=== PATIENT | female | born 1950 | race African-American/Black ===

== ENCOUNTER 2017-06-08 20:18 | Emergency (ER) | payer OTHER ==
[~2017-06-08] VITALS: Ht 160 cm; Wt 72.6 kg
[~2017-06-08 20:18] MED LIST: ACETAMINOP160 MG/12 PER TUBE; ASPIR 8181 MG PER TUBE; ASPIRIN325 PER TUBE; ATIVAN0.5 MG PER TUBE; AUGMENTIN 875875 MG PO; BICARSIM80 MG PER TUBE; BISACODYL SUPP10 MG RECTAL; CALCIUM 500 +1 EAC6 PER TUBE; CARVEDILOL25 MG PER TUBE; DIAZEPAM5 MG/1 M2 PER TUBE; DOCUSATE S100 MG/10 PER TUBE; DUONEB 2.5-0.5 M3 ML INH; ENOXAPARIN40 MG/0.1 SUBQ; FAMOTIDINE PER TUBE; FEVERALL650 MG RC; FISH OIL 1,0001 EAC7 PO; GLYCOPYRROLATE 22 M1 PER TUBE; HUMALOG100 UNIT/1 SUBQ; JANUVIA50 MG PER TUBE; KEFLEX250 M1 PO; LANSOPRAZOLE30 M1 PER TUBE; LANTUS SUBQ; LASIX 40 MG TAB40 M2 GT; LEVEMIR100 UNIT/1 SUBQ; LIPITOR 40 MG T40 M1 PER TUBE; METFORMIN HCL500 MG PER TUBE; MIRALAX17 GM PER TUBE; MULTIVITAMIN/MINERAL PER TUBE; NORCO 5-325 TA1 EACH PO; NORVASC10 MG PER TUBE; NOVOLOG100 UNIT/1 SUBQ; OYSTER SHELL 51 EACH PER TUBE; PLAVIX 75 MG TA75 M1 PER TUBE; POTASSIUM20 MEQ/15 PER TUBE; PREVACID15 MG PER TUBE; PRILOSEC 20 MG20 MG PER TUBE; REGLAN 5 MG TAB5 MG GT; REMERON15 MG SUBLING; TRANSDERM-SCO1 PATC1 TRANSDERM; VALIUM2 MG PO; VALIUM5 MG PER TUBE; VITAMIN D-32000 UNIT PER TUBE; VITAMIN D3400 UNIT/1 PER TUBE; ZESTRIL20 MG PER TUBE; ZOFRAN ODT4 MG SUBLING; ZOLOFT 50 MG TA50 M1 PO
[2017-06-08] MEDS ORDERED: HYDROCODON-ACE1 EAC7 PO (20:21)
[2017-06-08] MEDS ORDERED: BISACODYL SUPP10 MG RECTAL (20:23)
[2017-06-08] MEDS ORDERED: FISH OIL 1,001000 M2 PER TUBE (20:24)
[2017-06-08] MEDS ORDERED: GLUCAGON EMERGEN1 MG IM (20:25)
[2017-06-08] MEDS ORDERED: GLUCOSE4 GM PO (20:26)
[2017-06-08] MEDS ORDERED: DUONEB 2.5-0.5 M3 ML INH (20:27)
[2017-06-08] MEDS ORDERED: LEVEMIR SUBQ (20:28)
[2017-06-08] MEDS ORDERED: LISINOPRIL20 MG PER TUBE (20:28)
[2017-06-08] MEDS ORDERED: JANUVIA25 MG PER TUBE (20:28)
[2017-06-08] MEDS ORDERED: REGLAN10 MG PER TUBE (20:30)
[2017-06-08] MEDS ORDERED: SENNA S PER TUBE (20:33)
[2017-06-08] MEDS ORDERED: SILACE50 MG/5 ML PER TUBE (20:34)
[2017-06-08] MEDS ORDERED: MYLICON DR40 MG/0.1 PER TUBE (20:35)
== END 2017-06-08 20:44 | disposition home or self-care (01) ==
LOC: ER 20:18
DX: K94.23 Gastrostomy malfunction (principal); I10 Essential (primary) hypertension; E11.9 Type 2 diabetes mellitus without complications; M19.90 Unspecified osteoarthritis, unspecified site; F41.9 Anxiety disorder, unspecified; F32.9 Major depressive disorder, single episode, unspecified; E78.5 Hyperlipidemia, unspecified; Z86.73 Personal history of transient ischemic attack (TIA), and cerebral infarction without residual deficits; Z79.4 Long term (current) use of insulin

== ENCOUNTER 2018-01-15 17:03 | Inpatient (IN) | payer OTHER ==
[~2018-01-15] VITALS: Ht 152.4 cm; Wt 65.0 kg
--- NOTE | ~2018-01-15 | P ---
[facility] [place] [address] PROCEDURE REPORT Name: MAYRA AGUERO Room #: 461-P [facility] IN M.R.#: [id number] Admission: 01/15/18 Attend Phys: Anthony Koch MD Discharge: Date of : 50 Report #: [id number] THIS REPORT FOR: //name// CC: JOHNNA Brandt DATE OF SERVICE: 01/20/2018 PROCEDURE: Esophagogastroduodenoscopy with biopsies and percutaneous endoscopic gastrostomy tube change out. She is a patient of Dr. Tree Brandt and Dr. Anthony Koch. She is also patient of Dr. Johnna Geronimo. INDICATION FOR PROCEDURE: As above. DESCRIPTION OF PROCEDURE: Informed consent for this procedure was obtained from the patient's son prior to the administration of any sedation. The risks of the procedure which include bleeding, perforation, infection and complications of sedation were explained to the patient and to her son prior to the procedure and they have indicated their consent by signing. Propofol was slowly titrated before and during this procedure for patient comfort by the anesthesia service. As there will be no skin incisions, no antibiotics were administered prior to the procedure. The Olympus upper videoscope was introduced through the upper esophageal sphincter and advanced under direct visualization to the third portion of the duodenum. Findings are noted on withdrawal of the scope. The duodenum appears normal throughout its entirety. Pylorus, normal mucosa; antrum, normal mucosa. There is some patchy erythema just lateral to the PEG tube internal bumper, the old one. We were unable to collapse the balloon by aspirating the balloon port. Therefore, we used a biopsy forceps pin to burgess the balloon and it emptied internally into the patient's stomach. It was full of water as expected. Then, the PEG tube bumper was in-snared internally and cut off externally so that I was able to bring the old bumper up through the patient's esophagus and out through her mouth for discarding. Then, the Olympus upper videoscope was introduced through the upper esophageal sphincter again and advanced under direct visualization to the stomach. The proximal stomach was mildly erythematous. Biopsies were obtained from the stomach for histopathology to evaluate for possible etiologies of mild gastritis. The scope was withdrawn to the esophagus. Esophageal mucosa appeared normal throughout its entirety. The scope was advanced down into the stomach again. The old PEG site opening was [facility] [address] [place] [address] PROCEDURE REPORT Name: MORESHAWNAWILLIAM Room #: 461-P [facility] IN M.R.#: [id number] Admission: 01/15/18 Attend Phys: Anthony Koch MD Discharge: Date of : 50 Report #: [id number] located. A wire was advanced from the external site to the internal stomach and grasped endoscopically with a snare and brought to the patient's mouth. Then, a #20 pull PEG was tied onto the wire and pulled down through the patient's mouth and esophagus and stomach and out to the anterior gastric and anterior abdominal wall and anchored in position. Then, the Olympus upper videoscope was introduced through the upper esophageal sphincter and advanced again down into the stomach. The bumper of the PEG is seen in appropriate position on the anterior wall of the stomach. There was no bleeding evident. There was no external bleeding either. The bumper was applied externally to position the PEG correctly and biopsies were obtained x 2 for histopathology from the antrum of the stomach to evaluate the gastritis further if not mentioned above. The scope was withdrawn. The patient went to the recovery area in stable condition. She tolerated the procedure well. There was no retained food or fluid in her stomach. IMPRESSION: 1. Mild diffuse gastritis. 2. Successful change out of a #20 PEG tube for feeding purposes as above. Recommendations are for her to be able to use the PEG today for feeding purposes. There is a question of whether or not she may have gastroparesis and because she is unable to swallow anything, I am not really certain how to evaluate objectively her gastric emptying. I will discuss this with the nuclear medicine department. We may be able to put the tracer down in her PEG tube. Thank you very much once again for allowing me to participate in her care, Dr. Brandt and Dr. Koch. <ELECTRONICALLY SIGNED> By: Smitha Delacruz DO 01/21/18 0728 1246 0502 Smitha Delacruz DO /nt
--- NOTE | ~2018-01-15 | EKG ---
[address] [place] [address] ELECTROCARDIOGRAM REPORT Name: MORESHAWNAWILLIAM Room #: 461-P ADM IN M.R.#: [id number] Admission: 01/15/18 Attend Phys: En Galan Discharge: Date of : 50 Report #: [id number] THIS REPORT FOR: //name// [facility] ED Test Date: 2018-01-15 Test Time: 17:21:59 Pat Name: MAYRA AGUERO Department: Room: 461 Gender: F Law Office Manager: ISABELLA : 1950 Requested By: April Larson Order Number: [id number] MD: Moshe Subramanian Measurements Intervals [place] Rate: 114 P: 55 FL: 158 QRS: 62 QRSD: 80 T: 193 QT: 406 QTc: 560 Interpretive Statements Sinus tachycardia Probable left atrial enlargement Borderline low voltage, extremity leads Prolonged QT interval Artifact in lead(s) I,II,III,aVR,aVL,aVF,V1,V2 Compared to ECG 05/01/2014 00:30:18 Prolonged QT interval now present T-wave abnormality no longer present Electronically Signed On 01-16-2018 10:20:29 LOCOMOTIVE DRIVER by Moshe Subramanian [email or web address] <ELECTRONICALLY SIGNED> By: Moshe Subramanian MD 01/16/18 1020 1721 172 Moshe Subramanian MD /EPI
--- NOTE | ~2018-01-15 | EKG ---
[address] [address] ELECTROCARDIOGRAM REPORT Name: MAYRA AGUERO Room #: 461- ADM IN M.R.#: [id number] Admission: 01/15/18 Attend Phys: Anthony Koch MD Discharge: Date of : 50 Report #: [id number] THIS REPORT FOR: //name// [facility] Test Date: 2018-01-19 Test Time: 18:07:27 Pat Name: MAYRA AGUERO Department: Room: 461 Gender: F Mechanical Maintenance Instructor: Rey MATIAS : 1950 Requested By: Betito Weston Order Number: [id number] MD: Saleem Garcia Measurements Intervals [place] Rate: 111 P: 77 [place]: 155 QRS: 83 QRSD: 87 T: 147 QT: 309 QTc: 420 Interpretive Statements Sinus tachycardia Borderline low voltage, extremity leads Nonspecific ST and T wave abnormality Compared to ECG 01/15/2018 17:21:59 No significant change was found Electronically Signed On 01-20-2018 8:04:47 [employer]OR [employer] by Saleem Garcia [email or web address] <ELECTRONICALLY SIGNED> By: Saleem Garcia MD, [facility] 01/20/18 0804 1807 180 Saleem Garcia MD, [facility] /EPI
--- NOTE | ~2018-01-15 | PATH ---
[facility] [address] [place] [address] PATHOLOGY RPT PROCEDURE Name: MORESHAWNAWILLIAM Room #: 461-P DIS IN M.R.#: [id number] Admission: 01/15/18 Date of : 50 Discharge: 01/22/18 Report #: [id number] Path Case #: [id number] [facility] Accession Number: [id number] . 01 Material submitted: . GASTRITIS . 01 Clinical history: . Nodular, vomiting, PEG replacement Gastritis rule out H. pylori . 02 Diagnosis: Gastric mucosa, gastritis, rule out H. pylori, endoscopic biopsy: - Helicobacter pylori induced marked chronic active gastritis. - Intestinal metaplasia present. - Negative for atrophy or dysplasia. - Properly controlled immunohistochemical stain performed. . (IUV:vice president quality improvement; 01/24/2018) MBR/01/24/2018 . 02 Electronically signed: . Estela Leyva MD, Pathologist NPI- [id number] . 01 Gross description: . The specimen is received in formalin, labeled "Rylan Tolbert, gastritis rule out H. pylori" and consists of 3 fragments of soft [place] tissue measuring between 0.3 x 0.2 cm and 0.6 x 0.2 x 0.1 cm. They are entirely submitted in A1. (SDY; 01/21/2018) SYU/SYU . 02 Pathologist provided ICD-10: K29.50, B96.81 . 02 CPT . 267462, T21725 Specimen Comment: A courtesy copy of this report has been sent to Specimen Comment: [phone], , . Specimen Comment: Report sent to ,DR FU / DR GARZA Performed at: [address], [place] [id number] MD Farshad Chand MD Phone: [phone] Performed at: [address] [address] PATHOLOGY RPT PROCEDURE Name: RYLAN TOLBERT Room #: 461-P DIS IN M.R.#: [id number] Admission: 01/15/18 Date of : 50 Discharge: 01/22/18 Report #: [id number] Path Case #: [id number] [address] [place], [place] [id number] MD Estela Leyva MD Phone: [phone]
[~2018-01-15 17:03] MED LIST changes: +FISH OIL 1,001000 M2 PER TUBE; +GLUCAGON EMERGEN1 MG IM; +GLUCOSE4 GM PO; +HYDROCODON-ACE1 EAC7 PO; +JANUVIA25 MG PER TUBE; +LEVEMIR SUBQ; +LISINOPRIL20 MG PER TUBE; +MYLICON DR40 MG/0.1 PER TUBE; +REGLAN 10 MG TA10 MG PO; +REGLAN10 MG PER TUBE; +SENNA S PER TUBE; +SILACE50 MG/5 ML PER TUBE
[2018-01-15 17:32] LABS: URINE BILIRUBIN NEGATIVE (Negative); URINE BLOOD NEGATIVE (Negative); URINE CLARITY CLEAR; URINE COLOR YELLOW; URINE GLUCOSE-RANDOM* 2+ (Negative); URINE KETONES 1+ (Negative); URINE LEUKOCYTES-REFLEX NEGATIVE (Negative); URINE NITRITE-REFLEX NEGATIVE (Negative); URINE PROTEIN (DIPSTICK) NEGATIVE (Negative); URINE UROBILINOGEN 0.2 E.U./dl (0.2-1.0)
[2018-01-15 18:24] LABS: HEMATOCRIT 39.2 % (37.0-47.0); HEMOGLOBIN 13.1 gm/dL (12.0-15.0); MCH 27.4 pg (26.0-34.0); MCHC 33.3 g/dL (28.0-37.0); MCV 82.3 fL (80.0-100.0); RBC 4.77 mil/uL (4.20-5.00); RDW 16.9 % (10.5-14.5); WBC 16.3 thou/uL (4.0-11.0)
[2018-01-15 18:28] LABS: ANION GAP 10 mmol/L (7-16); BUN 30 mg/dL (7-18); CALCIUM 10.8 mg/dL (8.5-10.1); CHLORIDE 95 mmol/L (98-107); CO2 34 mmol/L (21-32); GLUCOSE 380 mg/dL (74-106); POTASSIUM 4.2 mmol/L (3.5-5.1); SODIUM 139 mmol/L (136-145)
[2018-01-15 18:37] LABS: ALBUMIN 4.1 g/dL (3.4-5.0); SGOT 13 U/L (15-37); SGPT 22 U/L (30-65); TOTAL BILIRUBIN 0.5 mg/dL (<0.1-1.0); TOTAL PROTEIN 9.3 g/dL (6.4-8.2); TROPONIN-I <0.06 ng/mL (<0.06)
[2018-01-15 21:51] VITALS: BP 125/70
[2018-01-15 22:00] VITALS: BP 112/70
[2018-01-15 22:44] VITALS: BP 147/79
[2018-01-15] MEDS ORDERED: COLACE100 MG PER TUBE (23:09)
[2018-01-15] MEDS ORDERED: MYLICON DR40 MG/0.1 PER TUBE (23:16)
[2018-01-15] MEDS ORDERED: TRIPLE ANTIBIO1 EAC1 TOP (23:23)
[2018-01-15] MEDS ORDERED: METOCLOPRAM5 MG/5 M2 PER TUBE (23:31)
[2018-01-15] MEDS ORDERED: GLUCERNA 1.2 C237 ML PO (23:59)
[2018-01-16 03:06] VITALS: BP 124/57
[2018-01-16 06:28] LABS: HEMATOCRIT 33.5 % (37.0-47.0); HEMOGLOBIN 11.2 gm/dL (12.0-15.0); MCHC 33.4 g/dL (28.0-37.0); RBC 3.99 mil/uL (4.20-5.00); RDW 16.7 % (10.5-14.5); WBC 10.1 thou/uL (4.0-11.0)
[2018-01-16 06:40] LABS: CALCIUM 9.1 mg/dL (8.5-10.1); CREATININE 0.8 mg/dL (0.6-1.0); POTASSIUM 3.5 mmol/L (3.5-5.1)
[2018-01-16 07:22] VITALS: BP 116/61
[2018-01-16 15:12] VITALS: BP 121/56
[2018-01-16 19:45] VITALS: BP 117/56
[2018-01-17] VITALS: BP 113/48
[2018-01-17 05:28] VITALS: BP 117/50
[2018-01-17 07:15] VITALS: BP 116/55
[2018-01-17 14:00] VITALS: BP 128/64
[2018-01-17 14:07] LABS: URINE BILIRUBIN NEGATIVE (Negative); URINE BLOOD TRACE (Negative); URINE CLARITY CLEAR; URINE COLOR YELLOW; URINE GLUCOSE-RANDOM* 3+ (Negative); URINE KETONES 1+ (Negative); URINE NITRITE-REFLEX NEGATIVE (Negative); URINE PROTEIN (DIPSTICK) NEGATIVE (Negative); URINE SPECIFIC GRAVITY 1.015 (1.005-1.035); URINE UROBILINOGEN 0.2 E.U./dl (0.2-1.0)
[2018-01-17 14:08] LABS: URINE LEUKOCYTES-REFLEX 1+ (Negative)
[2018-01-17 14:20] LABS: BACTERIA-REFLEX >30 Many /HPF (None Seen); CASTS None Seen /LPF (None Seen); CRYSTALS None Seen /LPF (None Seen); SQUAMOUS None Seen /LPF (0-3); URINE RBC None Seen /HPF (0-2); URINE WBC-REFLEX 6-15 Few /HPF (0-5)
[2018-01-17 20:06] VITALS: BP 144/76
[2018-01-18 06:31] VITALS: BP 137/76
[2018-01-18 07:35] VITALS: BP 132/62
[2018-01-18 09:06] LABS: HEMATOCRIT 30.7 % (37.0-47.0); HEMOGLOBIN 10.2 gm/dL (12.0-15.0); MCH 27.8 pg (26.0-34.0); MCHC 33.2 g/dL (28.0-37.0); MCV 83.8 fL (80.0-100.0); RBC 3.67 mil/uL (4.20-5.00); RDW 15.9 % (10.5-14.5); WBC 9.4 thou/uL (4.0-11.0)
[2018-01-18 09:15] LABS: CREATININE 0.7 mg/dL (0.6-1.0); POTASSIUM 3.8 mmol/L (3.5-5.1)
[2018-01-18 13:35] VITALS: BP 138/69
[2018-01-18 19:16] VITALS: BP 142/71
[2018-01-19 03:18] VITALS: BP 135/69
[2018-01-19 04:37] LABS: HEMATOCRIT 32.4 % (37.0-47.0); HEMOGLOBIN 10.6 gm/dL (12.0-15.0); MCH 27.7 pg (26.0-34.0); MCHC 32.8 g/dL (28.0-37.0); MCV 84.4 fL (80.0-100.0); RBC 3.84 mil/uL (4.20-5.00); WBC 8.1 thou/uL (4.0-11.0)
[2018-01-19 04:48] LABS: CREATININE 0.7 mg/dL (0.6-1.0); MAGNESIUM 1.7 mg/dL (1.8-2.4); POTASSIUM 3.7 mmol/L (3.5-5.1)
[2018-01-19 07:40] VITALS: BP 144/81
[2018-01-19 13:46] VITALS: BP 175/91
[2018-01-19 18:55] VITALS: BP 125/83
[2018-01-19 19:19] LABS: URINE BILIRUBIN NEGATIVE (Negative); URINE BLOOD 1+ (Negative); URINE COLOR YELLOW; URINE GLUCOSE-RANDOM* 3+ (Negative); URINE KETONES NEGATIVE (Negative); URINE LEUKOCYTES 1+ (Negative); URINE NITRITE NEGATIVE (Negative); URINE PROTEIN (DIPSTICK) TRACE (Negative); URINE UROBILINOGEN 0.2 E.U./dl (0.2-1.0)
[2018-01-19 19:20] LABS: URINE CLARITY HAZY
[2018-01-19 19:23] LABS: SQUAMOUS 4-10 Moderate /LPF (0-3)
[2018-01-19 19:24] LABS: AMORPHOUS PHOSPHATES Few /LPF (None Seen); BACTERIA >30 Many /HPF (None Seen); CASTS None Seen /LPF (None Seen); TRIPLE PHOSPHATE CRYSTALS 4-10 Moderate /LPF (None Seen); URINE RBC 0-2 Rare /HPF (0-2); URINE WBC 6-15 Few /HPF (0-5)
[2018-01-20 00:08] VITALS: BP 118/67
[2018-01-20 04:07] VITALS: BP 120/62
[2018-01-20 07:13] VITALS: BP 113/71
[2018-01-20 07:48] LABS: HEMATOCRIT 31.7 % (37.0-47.0); HEMOGLOBIN 10.5 gm/dL (12.0-15.0); MCH 27.7 pg (26.0-34.0); MCHC 33.3 g/dL (28.0-37.0); MCV 83.2 fL (80.0-100.0); RBC 3.8 mil/uL (4.20-5.00); RDW 16.1 % (10.5-14.5); WBC 7.1 thou/uL (4.0-11.0)
[2018-01-20 07:56] LABS: CALCIUM 9.4 mg/dL (8.5-10.1); CREATININE 0.7 mg/dL (0.6-1.0); MAGNESIUM 1.7 mg/dL (1.8-2.4); POTASSIUM 3.8 mmol/L (3.5-5.1)
[2018-01-20 13:15] VITALS: BP 146/71
[2018-01-20 19:48] VITALS: BP 132/65
[2018-01-21 03:53] VITALS: BP 136/69
[2018-01-21 06:24] LABS: HEMATOCRIT 34.2 % (37.0-47.0); HEMOGLOBIN 11.3 gm/dL (12.0-15.0); MCH 27.6 pg (26.0-34.0); MCHC 33.1 g/dL (28.0-37.0); MCV 83.2 fL (80.0-100.0); RBC 4.1 mil/uL (4.20-5.00); RDW 16.3 % (10.5-14.5); WBC 8.3 thou/uL (4.0-11.0)
[2018-01-21 06:37] LABS: CALCIUM 9.2 mg/dL (8.5-10.1); CREATININE 0.7 mg/dL (0.6-1.0); MAGNESIUM 1.8 mg/dL (1.8-2.4); POTASSIUM 4.2 mmol/L (3.5-5.1)
[2018-01-21 08:26] VITALS: BP 131/71
[2018-01-21 17:53] VITALS: BP 150/85
[2018-01-21 19:24] VITALS: BP 143/76
[2018-01-22 05:33] VITALS: BP 117/65
[2018-01-22 05:45] LABS: HEMATOCRIT 32.1 % (37.0-47.0); HEMOGLOBIN 10.6 gm/dL (12.0-15.0); MCH 27.8 pg (26.0-34.0); MCHC 32.9 g/dL (28.0-37.0); MCV 84.4 fL (80.0-100.0); RBC 3.8 mil/uL (4.20-5.00); RDW 16.7 % (10.5-14.5); WBC 8.1 thou/uL (4.0-11.0)
[2018-01-22 06:03] LABS: CALCIUM 8.9 mg/dL (8.5-10.1); CREATININE 0.7 mg/dL (0.6-1.0); MAGNESIUM 1.8 mg/dL (1.8-2.4); POTASSIUM 3.9 mmol/L (3.5-5.1)
[2018-01-22] MEDS ORDERED: KEFLEX500 M1 PO (11:15)
== END 2018-01-22 11:31 | DRG 389 ==
LOC: ER 17:03 → 4W 20:38 → EROBS 20:38 → 4W 22:21
PROVIDERS: Hospitalist; Internal Medicine; Nurse Practitioner Acute Care; Student in an Organized Health Care Education/Training Program
PROC: 0D20XUZ Change Feeding Device in Upper Intestinal Tract, External Approach (ICD-10-PCS; principal; 2018-01-20)
PROC: 0DB68ZX Excision of Stomach, Via Natural or Artificial Opening Endoscopic, Diagnostic (ICD-10-PCS; principal; 2018-01-20)
DX: K56.7 Ileus, unspecified (principal); K94.23 Gastrostomy malfunction; N39.0 Urinary tract infection, site not specified; I69.351 Hemiplegia and hemiparesis following cerebral infarction affecting right dominant side; K56.609 Unspecified intestinal obstruction, unspecified as to partial versus complete obstruction; I10 Essential (primary) hypertension; K29.70 Gastritis, unspecified, without bleeding; E11.9 Type 2 diabetes mellitus without complications; M19.90 Unspecified osteoarthritis, unspecified site; E66.9 Obesity, unspecified; F41.9 Anxiety disorder, unspecified; F32.9 Major depressive disorder, single episode, unspecified; E78.5 Hyperlipidemia, unspecified; K59.00 Constipation, unspecified; M81.0 Age-related osteoporosis without current pathological fracture; R13.10 Dysphagia, unspecified; D64.9 Anemia, unspecified; Y83.3 Surgical operation with formation of external stoma as the cause of abnormal reaction of the patient, or of later complication, without mention of misadventure at the time of the procedure; Z68.28 Body mass index [BMI] 28.0-28.9, adult; I69.320 Aphasia following cerebral infarction; Z79.899 Other long term (current) drug therapy
CPT/HCPCS: 10045; 62110; 62900; 70005

== ENCOUNTER 2018-02-22 06:11 | Inpatient (IN) | payer OTHER ==
[2018-02-22] VITALS (81 sets, daily range): BP systolic 40–119; BP diastolic 16–67
[~2018-02-22] VITALS: Ht 162.6 cm; Wt 66.7 kg
--- NOTE | ~2018-02-22 | HC ---
[facility] [place] [address] CONSULTATION Name: MAYRA AGUERO Room #: 243-P [facility] IN M.R.#: [id number] Admission: 02/22/18 Attend Phys: Tanya Archer MD Discharge: 02/22/18 Date of : 50 Report #: [id number] THIS REPORT FOR: //name// CC: FAM unknown Tree Karly Archer TYPE OF REPORT: Pulmonary consultation. REFERRAL PHYSICIAN: Tanya Archer M.D. REASON FOR REFERRAL: Septic shock. HISTORY OF PRESENT ILLNESS: The patient is a 67-year-old -Kitt[place] female who was brought to the Emergency Room with a decreased level of responsiveness, tachypnea and hypoxia. A pulmonary critical care consultation was requested. The patient is a resident of a retirement at [facility]. The patient has a history of CVA with resultant hemiplegia, dysphagia and aspiration risk. She has a PEG tube placed. The patient was recently hospitalized in January 2018 for UTI and ileus. She was in her usual state of health until the day of admission and the patient was found to be hypotensive, tachypneic with a respiratory rate in the 60s, hypoxic with a decreased level of consciousness. In the ER, the patient was subsequently intubated. Central line was placed due to profound hypotension. She remains unstable in the ICU. She is hypotensive, currently on 4 vasopressors. She is in Trendelenburg position. She is hypothermic with a temperature around 94 degrees Fahrenheit. PAST MEDICAL HISTORY: As mentioned above including history of aspiration pneumonia, hypertension, diabetes, ileus, osteoarthritis, debility and weakness, pressure wounds involving her lower extremities, anxiety disorder, CVA with resultant hemiplegia, dysphagia, aspiration, history of depression and delirium. PAST SURGICAL HISTORY: As mentioned above. ALLERGIES: None to medications. MEDICATIONS: From the retirement is reviewed. This include Lipitor, Lasix, famotidine, multivitamin, diazepam, hydrocodone, senna, Colace, Reglan, Glucerna, Remeron, potassium supplements, aspirin, Januvia, Glucophage, MiraLax, Dulcolax, glucagon, DuoNeb, Levemir, Zestril, Norvasc, Coreg and Plavix. [address] [address] CONSULTATION Name: MAYRA AGUERO Room #: 243-P [facility] IN ..#: [id number] Admission: 02/22/18 Attend Phys: Tanya Archer MD Discharge: 02/22/18 Date of : 50 Report #: [id number] FAMILY HISTORY: Unknown. SOCIAL HISTORY: No tobacco or alcohol use. REVIEW OF SYSTEMS: Deferred as the patient is intubated. PHYSICAL EXAMINATION: GENERAL: She is obtunded and nonresponsive. VITAL SIGNS: Temperature was 100.7. Currently, she is hypothermic with a core temperature of 94 degrees Fahrenheit, pulse is 120, respiratory rate is 30, blood pressure is 70/50 mmHg and saturation is 91%. HEENT: Normocephalic and atraumatic. NECK: Supple, without any lymphadenopathy or thyromegaly. She is orally intubated. CHEST: Breath sounds are fair anteriorly. Few scattered crackles in the bases. No wheezes. CARDIOVASCULAR: Distant heart sounds. No obvious murmurs or gallop. Pulses decreased, less than 1+/4+ bilaterally. BREASTS: Deferred. ABDOMEN: Soft and nontender. No organomegaly or masses felt. GENITOURINARY: Deferred. RECTAL: Deferred. EXTREMITIES: No cyanosis or clubbing. Pulses are less than 1+/4+ bilaterally. NEUROLOGICAL: The patient is unresponsive at this time. RADIOLOGICAL DATA: Chest x-ray shows patchy right-sided infiltrates, mild infiltrate in the left lower lobe. CT abdomen and pelvis shows mild mesenteric edema and small pelvic ascites, otherwise, no evidence of ileus obstruction. LABORATORY DATA: C-reactive protein is 167. Lactic acid is 6.1. Procalcitonin is 33. Initial electrolytes: Sodium 134, potassium 6.3, chloride 104, CO2 of 21, BUN is 48 and creatinine is 2.2. Liver enzymes are mildly abnormal. Glucose 451. WBC 3000, hemoglobin 11.0 and platelets normal and no evidence of bandemia. Albumin 2.7. Arterial blood gas on admission revealed pH 7.27, pCO2 of 39 and pO2 74. Repeat electrolytes reveal sodium 136, potassium 5.0, chloride 109, CO2 is 13, BUN is 40 and creatinine is 1.7. IMPRESSION: 1. Profound septic shock in this 67-year-old -Kitt[place] female. She is felt to have urinary tract infection, possible pneumonia. Urinalysis was grossly positive for bacteria. 2. Acute kidney injury due to acute tubular necrosis due to severe sepsis. 3. Worsening metabolic acidosis, now bicarbonate at 13. 4. Hyperkalemia likely pseudohyperkalemia due to acidosis. 5. Acute hypoxic respiratory failure due to profound sepsis, with possible pneumonia. [facility] [address] [place] [address] CONSULTATION Name: MAYRA AGUERO Room #: 243-P [facility] IN M.R.#: [id number] Admission: 02/22/18 Attend Phys: Tanya Archer MD Discharge: 02/22/18 Date of : 50 Report #: [id number] 6. Anemia, probably related to hemodilution with a hemoglobin dropping from 11 to 8. No obvious bleeding source. 7. Hyperglycemia, history of diabetes mellitus type 2, does not appear to be in diabetic ketoacidosis, currently on insulin drip. 8. History of left cerebrovascular accident, right hemiplegic, expressive aphasia, dysphagia, aspiration, status post percutaneous endoscopic gastrostomy with progressive debility and weakness. 9. Hypertension. 10. Severe protein-calorie malnutrition. 11. She is on Plavix chronically. RECOMMENDATIONS: Agree with sepsis protocol, aggressive fluid resuscitation, vasopressors to maintain mean arterial blood pressure around 60 or systolic greater than 90s if possible. We would follow renal function closely along with urine output and try to maintain urine output greater than 20 mL per hour. Agree with broad-spectrum antibiotics to cover for possible pneumonia along with UTI. Continue mechanical ventilation, will wean O2 for sat 90%. We will keep peak airway pressure less than 40, minimize FiO2 to below 60% if possible, may need to utilize PEEP. Saturation has decreased while undergoing fluid resuscitation. DVT and GI prophylaxis is recommended. Overall, outlook appears to be grim at this time given profound septic shock with multisystem organ failure in this patient with severe comorbid conditions. The patient has a DPOA, who is a son. He desires aggressive intervention, though rest of the family are leaning towards conservative management. The patient is in need of an Art line. Pulses were examined. Femoral pulse along with radial pulse was difficult to locate. We will consult anesthesia to assist in placement of arterial line if possible. The findings were discussed in detail with the nurse. Thank you for this consultation. CRITICAL CARE TIME: One hour. <ELECTRONICALLY SIGNED> By: Krish Mann MD 02/23/18 1915 1616 2153 Krish Mann MD /nt
--- NOTE | ~2018-02-22 | EKG ---
[address] [address] ELECTROCARDIOGRAM REPORT Name: SHAWNA AGUEROWILLIAM Room #: 170-8 ADM IN M.R.#: [id number] Admission: 02/22/18 Attend Phys: Tanya Archer MD Discharge: Date of : 50 Report #: [id number] THIS REPORT FOR: //name// [facility] ED Test Date: 2018-02-22 Test Time: 07:26:54 Pat Name: MAYRA AGUERO Department: Room: 170 Gender: F Dragger: samantha : 1950 Requested By: April Larson Order Number: [id number] MD: Saleem Garcia Measurements Intervals [place] Rate: 114 P: 81 [place]: 149 QRS: 73 QRSD: 93 T: 69 QT: 327 QTc: 451 Interpretive Statements Sinus tachycardia Low voltage Compared to ECG 01/19/2018 18:07:27 ST (T wave) deviation no longer present Electronically Signed On 02-22-2018 8:42:50 HEAD HOST/HOSTESS by Saleem Garcia [email or web address] <ELECTRONICALLY SIGNED> By: Saleem Garcia MD, [facility] 02/22/18 0842 5 5 Saleem Garcia MD, [facility] /EPI
--- NOTE | ~2018-02-22 | HC ---
[facility] [place] [address] CONSULTATION Name: MOREMAYRA Room #: 243-P [facility] IN M.R.#: [id number] Admission: 02/22/18 Attend Phys: Tanya Archer MD Discharge: 02/22/18 Date of : 50 Report #: [id number] THIS REPORT FOR: //name// CC: FAM unknown Tree Akkulugari Tanya Archer DATE OF SERVICE: 02/22/2018 ATTENDING PHYSICIAN: Dr. Archer. REASON FOR CONSULTATION: Sepsis. HISTORY OF PRESENT ILLNESS: A 67-year-old woman seen for severe sepsis. The patient now intubated, all information gathered from review of records. The patient apparently had been frequently hospitalized at [facility] from where she is discharged to a local [facility] facility. The patient is started on Zosyn and vancomycin. She is hypotensive, receiving fluids and Levophed. She was medicated with Zosyn and vancomycin single dose. All information gathered from the review of records. PAST MEDICAL HISTORY: CVA. Recurrent aspiration. Status post percutaneous gastrostomy. Diabetes mellitus. History of pneumonia. Acute kidney injury. Depression. Previous delirium. DRUG ALLERGIES: None listed. MEDICATIONS: The patient is currently on treatment with vancomycin at loading dose 2000 mg followed by 500 mg IV daily, Zosyn 4.5 grams IV single dose and 3.375 every 12 hours, insulin lispro per sliding scale, p.r.n. glucose, glucagon, intravenous fluid, ____ dexmedetomidine, calcium gluconate given, sodium chloride infusion ongoing. Levophed has been ordered. The patient to be transferred to ICU. SOCIAL HISTORY: See H and P, old records. FAMILY HISTORY: See H and P, old records. REVIEW OF SYSTEMS: Unable to obtain. PHYSICAL EXAMINATION: GENERAL: Chronically ill-appearing woman. VITAL SIGNS: Temperature 100.7 on admission, pulse 126, respirations 15, BP as low as 68/43. HEENMT: Pupils equal. Mouth, unable to examine because of orotracheal intubation. Neck: Right internal jugular central venous catheter. [facility] [address] [place] [address] CONSULTATION Name: MAYRA AGUERO Room #: 243-P [facility] IN M.R.#: [id number] Admission: 02/22/18 Attend Phys: Tanya Archer MD Discharge: 02/22/18 Date of : 50 Report #: [id number] LUNGS: Crackles right lung posteriorly upper [place]on. HEART: S1, S2. No gallop. ABDOMEN: Percutaneous gastrostomy, distended, tympanitic on percussion and decreased bowel sounds. Not apparently or obviously tender. PELVIC AND RECTAL: Deferred. EXTREMITIES: No clubbing, cyanosis. NEUROLOGIC: Unable to evaluate. LABORATORY DATA: Sodium 134, potassium 6.3, BUN 48, creatinine 2.2, glucose 451. Albumin 2.7 g/dL. WBC is 3000, hemoglobin 11 g/dL, platelets 284,000. White blood cell count differential 70% segmented neutrophils, 26% lymphocytes. Urinalysis revealed pH 1.005, pH 8.5, 2+ protein, 1+ glucose, 3+ blood. Microscopic exam revealed microscopic pyuria, hematuria, bacteriuria. ABGs revealed pH 7.29, pCO2 low at 29.8, pO2 175, bicarbonate low 14.1. Lactate elevated at 5.18. These set of gases on FiO2 of 60%. MICROBIOLOGY DATA: All pending at the time of this dictation. RADIOLOGY EVALUATION: A chest x-ray obtained, revealed cardiomegaly and patchy right upper and lower lung infiltrates. CT scan abdomen and pelvis pending. ASSESSMENT: 1. Severe sepsis, septic shock. 2. Possible aspiration pneumonia -- recurrent. 3. Possible urinary tract infection. 4. History of cerebrovascular accident with history of dysphagia requiring gastrostomy. 5. Acute kidney injury. 6. Metabolic and lactic acidosis with respiratory alkalosis, noncompensated. SUGGESTIONS: Recommend ESR, CRP, MRSA screen, broad-spectrum antibiotic coverage for healthcare-associated pneumonia consistent with combination of vancomycin to be dosed by family, Zosyn 3.375 grams IV every 12 hours as well as Levaquin 750 mg IV 1 dose. We will adjust antibiotic pending clinical response and renal function tests in the morning. Dr. Tanya Archer, thank you for requesting my suggestions. <ELECTRONICALLY SIGNED> By: Favian Goetz MD 02/23/18 1002 0900 1120 Favian Goetz MD /nt
[~2018-02-22 06:11] MED LIST changes: +COLACE100 MG PER TUBE; +GLUCERNA 1.2 C237 ML PO; +KEFLEX500 M1 PO; +METOCLOPRAM5 MG/5 M2 PER TUBE; +TRIPLE ANTIBIO1 EAC1 TOP
[2018-02-22 06:28] LABS: BE(vivo) -8.7 mmol/L (-2 to +3); HCO3 17.6 mmol/L (22.0-26.0); PCO2 39.3 mmHg (35.0-45.0); PO2 74.7 mmHg (80.0-100.0); sO2 93.2 % (92.0-98.0)
[2018-02-22 07:08] LABS: ABSOLUTE NEUTROPHILS 2.1 thou/uL (1.4-8.2); BASOPHILS 0.2 % (0.0-2.0); EOSINOPHILS 0.3 % (0.0-3.0); HEMATOCRIT 33.8 % (37.0-47.0); LYMPHOCYTES 26.3 % (24.0-44.0); MCH 27.4 pg (26.0-34.0); MCHC 32.5 g/dL (28.0-37.0); MCV 84.2 fL (80.0-100.0); MONOCYTES 3.2 % (1.0-8.0); PLATELET COUNT 284 thou/uL (150-400); RBC 4.01 mil/uL (4.20-5.00); RDW 17.3 % (10.5-14.5)
[2018-02-22 07:11] LABS: ANION GAP 9 mmol/L (7-16); BUN 48 mg/dL (7-18); CALCIUM 8.5 mg/dL (8.5-10.1); CHLORIDE 104 mmol/L (98-107); CO2 21 mmol/L (21-32); CREATININE 2.2 mg/dL (0.6-1.0); GLUCOSE 451 mg/dL (74-106); SODIUM 134 mmol/L (136-145)
[2018-02-22 07:17] LABS: POTASSIUM 6.3 mmol/L (3.5-5.1)
[2018-02-22 07:19] LABS: ALBUMIN 2.7 g/dL (3.4-5.0); SGOT 8 U/L (15-37); SGPT 14 U/L (30-65); TOTAL BILIRUBIN 0.5 mg/dL (<0.1-1.0); TOTAL PROTEIN 6.4 g/dL (6.4-8.2); TROPONIN-I <0.06 ng/mL (<0.06)
[2018-02-22 07:53] LABS: URINE CLARITY CLODY; URINE COLOR YELLOW; URINE SPECIFIC GRAVITY 1.005 (1.005-1.035)
[2018-02-22 07:54] LABS: URINE PROTEIN (DIPSTICK) 2+ (Negative)
[2018-02-22 07:55] LABS: URINE GLUCOSE-RANDOM* 1+ (Negative); URINE KETONES NEGATIVE (Negative)
[2018-02-22 07:56] LABS: URINE BILIRUBIN NEGATIVE (Negative); URINE BLOOD 3+ (Negative)
[2018-02-22 07:57] LABS: URINE LEUKOCYTES-REFLEX 2+ (Negative); URINE NITRITE-REFLEX NEGATIVE (Negative); URINE UROBILINOGEN 0.2 E.U./dl (0.2-1.0)
[2018-02-22 07:58] LABS: BE(vivo) -11.2 mmol/L (-2 to +3); HCO3 14.1 mmol/L (22.0-26.0); PCO2 29.8 mmHg (35.0-45.0); PO2 175.6 mmHg (80.0-100.0); pH 7.293 (7.360-7.450); sO2 99.1 % (92.0-98.0)
[2018-02-22 08:01] LABS: BACTERIA-REFLEX >30 Many /HPF (None Seen); CASTS None Seen /LPF (None Seen); CRYSTALS None Seen /LPF (None Seen); SQUAMOUS 0-3 Few /LPF (0-3); URINE WBC-REFLEX >25 Many /HPF (0-5)
[2018-02-22 10:17] LABS: CALCIUM 8.9 mg/dL (8.5-10.1)
[2018-02-22 10:21] LABS: POTASSIUM 4.8 mmol/L (3.5-5.1)
[2018-02-22 13:53] LABS: HEMATOCRIT 26.4 % (37.0-47.0); MCH 26.6 pg (26.0-34.0); MCHC 30.6 g/dL (28.0-37.0); MCV 86.9 fL (80.0-100.0); RBC 3.03 mil/uL (4.20-5.00); RDW 17.5 % (10.5-14.5)
[2018-02-22 14:06] LABS: CALCIUM 7.2 mg/dL (8.5-10.1); CREATININE 1.7 mg/dL (0.6-1.0)
[2018-02-22 14:34] LABS: HEMOGLOBIN 8.1 gm/dL (12.0-15.0)
== END 2018-02-22 19:00 | DRG 871 ==
LOC: ER 06:11 → ICU 07:49 → EROBS 07:49 → ICU 09:26
PROVIDERS: Internal Medicine; Internal Medicine Pulmonary Disease; Student in an Organized Health Care Education/Training Program
PROC: 02HV33Z Insertion of Infusion Device into Superior Vena Cava, Percutaneous Approach (ICD-10-PCS; principal; 2018-02-22)
PROC: 0BH17EZ Insertion of Endotracheal Airway into Trachea, Via Natural or Artificial Opening (ICD-10-PCS; principal; 2018-02-22)
PROC: 5A1935Z Respiratory Ventilation, Less than 24 Consecutive Hours (ICD-10-PCS; principal; 2018-02-22)
DX: A41.9 Sepsis, unspecified organism (principal); J69.0 Pneumonitis due to inhalation of food and vomit; R65.21 Severe sepsis with septic shock; J96.21 Acute and chronic respiratory failure with hypoxia; N17.0 Acute kidney failure with tubular necrosis; N39.0 Urinary tract infection, site not specified; E87.4 Mixed disorder of acid-base balance; I69.354 Hemiplegia and hemiparesis following cerebral infarction affecting left non-dominant side; K56.699 Other intestinal obstruction unspecified as to partial versus complete obstruction; I10 Essential (primary) hypertension; K21.9 Gastro-esophageal reflux disease without esophagitis; M19.90 Unspecified osteoarthritis, unspecified site; D64.9 Anemia, unspecified; E78.2 Mixed hyperlipidemia; E66.9 Obesity, unspecified; F41.9 Anxiety disorder, unspecified; E11.65 Type 2 diabetes mellitus with hyperglycemia; E87.5 Hyperkalemia; F32.9 Major depressive disorder, single episode, unspecified; Z93.1 Gastrostomy status; Z68.25 Body mass index [BMI] 25.0-25.9, adult; Z79.02 Long term (current) use of antithrombotics/antiplatelets; Z79.4 Long term (current) use of insulin; Z79.82 Long term (current) use of aspirin; Z79.84 Long term (current) use of oral hypoglycemic drugs; Z79.899 Other long term (current) drug therapy
CPT/HCPCS: 10078